=== PATIENT | female | born 1975 | race Caucasian/White ===

== ENCOUNTER 2016-11-16 18:57 | Emergency (ER) | payer OTHER ==
[~2016-11-16] VITALS: Ht 181.6 cm; Wt 108.0 kg
--- NOTE | ~2016-11-16 | EKG ---
PATIENT: KAREN ESPINOZA UNIT #: [id number] Ventricular Rate: 59 BPM Atrial Rate: 59 BPM P-R Interval: 168 ms QRS Duration: 98 ms Q-T Interval: 430 ms QTC Calculation(Bezet): 425 ms P Darrow: 70 degrees Calculated R Darrow: 38 degrees Calculated T Darrow: 27 degrees Diagnosis Line: Sinus bradycardia Diagnosis Line: Otherwise normal ECG Diagnosis Line: When compared with ECG of 03-JAN-2013 13:16, Diagnosis Line: (unconfirmed) Diagnosis Line: Nonspecific T wave abnormality no longer evident Diagnosis Line: in Lateral leads Diagnosis Line: Confirmed by NARGIS PLAZA MD ([id number]) on 11/17/2016 Diagnosis Line: 7:19:34 AM INTERPRETING MD: BOLA DEE
[~2016-11-16 18:57] MED LIST: ALLERGY10 M2 PO; AMOXICILLIN500 M1 PO; AMOXIL500 M1 PO; ANEXSIA 5/325 M1 TA1 PO; ANTIVERT PO; BACTRIM DS TABL1 TA1 PO; BACTRIM DS TABL1 TAB PO; BACTROBAN 2% TOP; BENTYL20 MG PO; BUPROPION XL150 MG PO; CATAPRES-TTS-20.2 MG PO; CATAPRES0.1 MG PO; DIFLUCAN PO; DIOVAN40 MG PO; EFFEXOR PO; GABAPENTIN300 MG PO; GABAPENTIN600 MG PO; GAS RELIEF OTC PO; HYDROCHLOROTHIA25 MG PO; IBUPROFEN PO; K-DUR10 MEQ PO; KEFLEX PO; KEFLEX500 M1 PO; KLONOPIN1 MG PO; LEXAPRO PO; LIPITOR PO; LIPITOR20 MG PO; LISINOPRIL20 MG PO; LORTAB 7.5-5001 TAB PO; LOSARTAN POTAS100 MG PO; MACROBID100 M1 PO; NEURONTIN600 MG PO; NEXIUM PO; NO MEDICATIONS; NORCO 7.5-3251 EACH PO; NORVASC PO; NORVASC10 MG PO; OMNICEF300 MG PO; PERCOCET5/325 PO; PRAVASTATIN SOD20 MG PO; TOPAMAX PO; TOPROL XL PO; TOPROL XL100 MG PO; ULTRAM PO; VALSARTAN320 MG PO; WELLBUTRIN XL150 M1 PO; [UNRECOGNIZED DRUG - OTHER] PO
[2016-11-16 19:44] LABS: BASOPHIL# 0.1 X10e3 (0-0.3); BASOPHIL% 0.6 % (0-2.5); EOSINOPHIL# 0.1 X10e3 (0-0.7); EOSINOPHIL% 1.1 % (0.0-7.0); HEMATOCRIT 39.7 % (35.0-45.0); HEMOGLOBIN 13.6 gm/dL (12.0-16.0); LYMPHOCYTE# 4.6 X10e3 (1.0-3.5); MEAN CELL VOLUME 86.6 FL (83-96); MEAN CORPUSCULAR HEMOGLOBIN 29.8 PG (28-34); MEAN CORPUSCULAR HGB CONC 34.4 g/dL (30-36); MEAN PLATELET VOLUME 8.5 FL (6.5-11.5); MONOCYTE# 0.8 X10e3 (0-1.0); MONOCYTE% 6.6 % (3.0-12.0); NEUTROPHIL# 6.2 X10e3 (1.5-7.1); NEUTROPHIL% 52.7 % (40-75); PLATELET COUNT 230 X10e3 (140-420); RED BLOOD COUNT 4.58 X10e (3.90-5.30); RED CELL DISTRIBUTION WIDTH 13.3 % (11.0-15.5); WHITE BLOOD COUNT 11.8 X10e3 (4.0-10.5)
[2016-11-16 19:49] LABS: DIFF IND NO
[2016-11-16 19:58] LABS: ALBUMIN SERUM 4.3 g/dL (3.5-5.0); BILIRUBIN, DIRECT 0.1 mg/dL (0.0-0.2); BILIRUBIN,INDIRECT 0.5 mg/dL (0.0-0.9); BILIRUBIN,TOTAL 0.6 mg/dL (0.2-2.0); BUN/CREATININE RATIO 15.83; CALCIUM SERUM 8.9 mg/dL (8.4-10.2); CREATININE SERUM 1.2 mg/dL (0.6-1.4); GLOM FILT RATE Estimated 55.3 mL/min (>60); POTASSIUM 3.3 mmol/L (3.5-5.1); PROTEIN TOTAL SERUM 7.4 g/dL (6.0-8.3)
[2016-11-16 21:28] LABS: URINE SOURCE CLEAN CATCH
[2016-11-16 21:32] LABS: URINE APPEARANCE CLEAR; URINE BILIRUBIN NEG (NEG); URINE BLOOD 2+ (NEG); URINE COLOR YELLOW; URINE GLUCOSE NEG (NEG); URINE KETONE NEG (NEG); URINE LEUKOCYTE ESTERASE NEG (NEG); URINE NITRATE NEG (NEG); URINE PROTEIN NEG (NEG); URINE SPECIFIC GRAVITY 1.021 (1.003-1.035); URINE UROBILINOGEN 0.2 MG/DL (NEG)
[2016-11-16 21:34] LABS: URINE BACTERIA AUWI NEG (NEGATIVE); URINE SQUAMOUS EPITHELIAL CELL FEW /[HPF]
[2016-11-16 21:39] LABS: CULTURE INDICATED? NO
== END 2016-11-16 22:52 | disposition home or self-care (01) ==
LOC: CED 18:57
DX: E86.0 Dehydration (principal); E87.6 Hypokalemia
CPT/HCPCS: 36415; 80048; 80076; 81003; 83735; 85025; 93005; 96361; 96374; 99284; J2405

== ENCOUNTER 2016-12-03 14:43 | Emergency (ER) | payer OTHER ==
[2016-12-03 15:48] LABS: BASOPHIL# 0.1 X10e3 (0-0.3); BASOPHIL% 0.8 % (0-2.5); EOSINOPHIL# 0.2 X10e3 (0-0.7); EOSINOPHIL% 1.6 % (0.0-7.0); HEMATOCRIT 35.8 % (35.0-45.0); HEMOGLOBIN 12.6 gm/dL (12.0-16.0); LYMPHOCYTE# 3.4 X10e3 (1.0-3.5); MEAN CELL VOLUME 85.8 FL (83-96); MEAN CORPUSCULAR HEMOGLOBIN 30.2 PG (28-34); MEAN CORPUSCULAR HGB CONC 35.2 g/dL (30-36); MEAN PLATELET VOLUME 8.4 FL (6.5-11.5); MONOCYTE# 0.6 X10e3 (0-1.0); MONOCYTE% 6.5 % (3.0-12.0); NEUTROPHIL# 5.4 X10e3 (1.5-7.1); NEUTROPHIL% 56.1 % (40-75); PLATELET COUNT 229 X10e3 (140-420); RED BLOOD COUNT 4.17 X10e (3.90-5.30); RED CELL DISTRIBUTION WIDTH 13.5 % (11.0-15.5); WHITE BLOOD COUNT 9.6 X10e3 (4.0-10.5)
[2016-12-03 15:55] LABS: DIFF IND NO
[2016-12-03 16:21] LABS: BUN/CREATININE RATIO 18.46; CALCIUM SERUM 8.6 mg/dL (8.4-10.2); CREATININE SERUM 1.3 mg/dL (0.6-1.4); GLOM FILT RATE Estimated 50.2 mL/min (>60)
[2016-12-03 16:22] LABS: POTASSIUM 2.8 mmol/L (3.5-5.1)
== END 2016-12-03 16:57 | disposition home or self-care (01) ==
LOC: SED 14:43
PROVIDERS: Emergency Medicine
DX: E87.6 Hypokalemia (principal); R60.9 Edema, unspecified; G62.9 Polyneuropathy, unspecified; F41.9 Anxiety disorder, unspecified; Z90.710 Acquired absence of both cervix and uterus; Z79.899 Other long term (current) drug therapy
CPT/HCPCS: 36415; 80048; 85025; 99283